=== PATIENT | female | born 1980 ===

== ENCOUNTER 2024-03-04 11:48 | Emergency (ER) | payer MEDICAID, SELFPAY ==
--- NOTE | ~2024-03-04 | US_ITS ---
EXAMINATION:US pelvic and transvaginal CLINICAL INFORMATION: Reason for Exam abdominal pain. ovariain torsions COMPARISON: No priors available. LMP: 02/12/2024 FINDINGS: UTERUS: The uterus is anteverted. Size: 13.1 x 7.2 x 6.8 cm. Uterine mass: Multiple uterine masses likely fibroids 5 of which were well identified and measured measuring up to 3.8 cm, 2.6 cm, 3.1 cm, 1.9 cm and 1.9 cm. Cervix: Grossly unremarkable. Endometrium: No ultrasound evidence of endometrial lesion. endometrial thickness measures 0.9 cm ADNEXA: Normal Right ovary: Normal in size. Left ovary: Not visualized might have been obscured by bowel gas Doppler exam: Normal Doppler flow in the right ovary. FREE FLUID: Trace amount of free fluid. OTHER FINDINGS: None US/US pelvic ovarian doppler IMPRESSION: 1. Multiple uterine masses likely fibroids the largest measure up to 3.8 cm. 2. Left ovary not visualized might have been obscured by bowel gas.
--- NOTE | ~2024-03-04 | US_ITS ---
EXAMINATION:US pelvic and transvaginal CLINICAL INFORMATION: Reason for Exam abdominal pain. ovariain torsions COMPARISON: No priors available. LMP: 02/12/2024 FINDINGS: UTERUS: The uterus is anteverted. Size: 13.1 x 7.2 x 6.8 cm. Uterine mass: Multiple uterine masses likely fibroids 5 of which were well identified and measured measuring up to 3.8 cm, 2.6 cm, 3.1 cm, 1.9 cm and 1.9 cm. Cervix: Grossly unremarkable. Endometrium: No ultrasound evidence of endometrial lesion. endometrial thickness measures 0.9 cm ADNEXA: Normal Right ovary: Normal in size. Left ovary: Not visualized might have been obscured by bowel gas Doppler exam: Normal Doppler flow in the right ovary. FREE FLUID: Trace amount of free fluid. OTHER FINDINGS: None US/US pelvic and transvaginal IMPRESSION: 1. Multiple uterine masses likely fibroids the largest measure up to 3.8 cm. 2. Left ovary not visualized might have been obscured by bowel gas.
[2024-03-04 12:18] VITALS: BP 176/107; PULSE 103; RESP 16; TEMP 36.9; O2SAT 98; BMI 33.0
--- NOTE | 2024-03-04 12:21 | ED.GENADULT ---
HPI - General Adult General Chief complaint: Vaginal Bleeding Stated complaint: Vag Discomfort Time Seen by Provider: 03/04/24 19:13 Source: patient Mode of arrival: ambulatory Limitations: no limitations History of Present Illness HPI narrative: Patient comes to the emergency room complaining of a near syncopal episode. Patient states that she was at work, felt lightheaded, did not pass out. Patient states that she has had this happened before. Patient states that yesterday she had an episode of heavy vaginal bleeding. Patient states that she does not know if she had rectal bleeding as well. She states that over last month, patient has been having intermittent vaginal bleeding and spotting. Patient states that today she has not had any vaginal bleeding or spotting at all. Related Data Allergies Allergy/AdvReac Type Severity Reaction Status Date / Time pollen Allergy Unknown Itchy Eyes Uncoded 03/04/24 12:24 Review of Systems Review of Systems: Constitutional : No Weight loss, No Fever, No Chills, No Night Sweats, complaining of fatigue ENT/Mouth : No Hearing loss, No Ear Pain, No Nasal Congestion, No Sinus Pain, No Hoarseness, No sore throat, No Rhinorrhea, No Swallowing Difficulty Eyes: No Eye Pain, No Swelling, No Redness, No Foreign Body, No Discharge, No Vision Changes Cardiovascular : No Chest Pain, No SOB, No Dyspnea on Exertion, No Orthopnea, No Edema, No Palpitations, complaining of near syncopal episode, blacking out but no loss of consciousness, Respiratory : No Cough, No Sputum, No Wheezing, No Smoke Exposure, No Dyspnea Gastrointestinal : No Nausea, No Vomiting, No Diarrhea, No Constipation, No abdominal Pain, No Hematochezia, No Melena Genitourinary : Complaining of irregular vaginal bleeding, No Dysuria, No Urinary Frequency, No Hematuria, No Urinary Incontinence, No Urgency, No Flank Pain, No Urinary Flow Changes, No Hesitancy Musculoskeletal : No joint pain, No Myalgias, No Joint Swelling Skin : No Skin Lesions, No rash Neuro : No Weakness, No Numbness, No Paresthesias, No Loss of Consciousness, No Dizziness, No Headache Psych : No Anxiety/Panic, No Depression, No SI/HI/AH/VH, No Social Issues, Heme/Lymph: No Bruising, No Bleeding,No Lymphadenopathy Endocrine : No Polyuria, No Polydipsia, No Temperature Intolerance PMFSH Social History Social History Advance Directives: No Do you have a plan to hurt others: No Plan Physical Exam ED Vital Signs: Vital Signs - 24 hr 03/04/24 12:18 03/04/24 19:25 03/04/24 21:27 Temperature 98.4 F 98.7 F Pulse Rate 103 H 90 83 Respiratory Rate 16 16 Blood Pressure 176/107 H 149/87 H 141/92 H Pulse Oximetry 98 99 Oxygen Delivery Method Room Air Room Air 03/04/24 21:29 03/04/24 21:29 03/04/24 22:39 Temperature 98.5 F Pulse Rate 87 90 85 Respiratory Rate 16 Blood Pressure 151/94 H 164/100 H 154/92 H Pulse Oximetry 100 Oxygen Delivery Method Room Air 03/04/24 22:55 Temperature 98.5 F Pulse Rate 85 Respiratory Rate 16 Blood Pressure 154/92 H Pulse Oximetry 100 Oxygen Delivery Method Room Air BMI result Body Mass Index 33.0 Const Other: Appearance: Alert. Oriented X3. No acute distress. Eyes: Pupils equal, round and reactive to light. ENT: Pharynx normal. Neck: Normal inspection. Neck supple. No lymph nodes noted. No crepitus CVS: Normal heart rate and rhythm. Pulses normal. Normal S1 and S2 Respiratory: No respiratory distress. Breath sounds normal. No Wheezing. No rales Abdomen: Soft and nontender. No rigidity. No distention. Digital rectal exam shows normal brown stool Skin: Skin warm and dry. Normal skin color. Normal skin turgor. Extremities: No lower extremity edema. No Lacerations. No Rash Neuro: Oriented X 3. No motor deficit. No sensory deficit. Moving all extremities. No slurred speech. CN 2 through 12 grossly intact Psych: calm, cooperative, normal affect Course Course Course Narrative: RME: Triage written by KAN Howell. 43-year-old female presents to the ED for lower abdominal cramping and heavy vaginal bleeding. Patient has been having irregular menses and dysuria. Patient still felt lightheaded and then had lower abdominal cramping for like she was about to pass out. Medical Decision Making Medical Decision Making [facility] Narrative: -my interpretation of EKG: Normal sinus rhythm, heart rate 83, no ST segment depression or elevation, no T-wave inversion, QTC 455 My interpretation of labs: Normal hematology, chemistry within normal limits, D-dimer negative, coagulation times normal, troponin negative, hCG negative, urinalysis negative for blood or UTI, guaiac test negative -ultrasound radiology report: Multiple uterine masses likely fibroids -I discussed the above-mentioned with the patient, patient will follow-up with her OBGYN. At this time, patient is unwilling to start taking any control pills or an IUD since patient would like to try to get . -at this time, patient denies any spotting or vaginal bleeding. -orthostatic vitals were negative Differential Diagnosis Differential Diagnoses: The differential diagnosis associated with the presentation includes (Near syncope, anemia, orthostatic hypotension, dehydration) Admission/Observation Consideration of admission/observation: Escalation of care including admission/observation considered (Given patient's symptoms, observation was considered) Lab Data MDM Lab Attestation statement: I reviewed the patient's lab results. 03/04/24 12:37 03/04/24 12:37 Labs: Lab Results 03/04/24 03/04/24 03/04/24 Range/Units 12:37 12:45 19:47 WBC 5.5 (4.8-10.8) X10*3/uL RBC 4.25 (4.20-5.50) X10*6/uL Hgb 12.6 (12.0-16.0) g/dl Hct 37.8 (37.0-47.0) % MCV 88.9 (80.0-98.0) fL MCH 29.6 (27.0-33.0) pg MCHC 33.3 (31.0-35.0) g/dl RDW 11.9 (11.0-16.0) % Plt Count 266 (160-400) X10*3/uL MPV 10.5 (9.4-12.3) fL Immature Gran % (Auto) 0.2 (0.0-0.4) % Neut % (Auto) 52.0 (45-73) % Lymph % (Auto) 31.7 (20-40) % [place] % (Auto) 15.2 H (2-11) % Eos % (Auto) 0.5 (0-4) % Baso % (Auto) 0.4 (0-2) % Lymph # (Auto) 1.7 (1.2-4.9) X10*3/uL [place] # (Auto) 0.8 (0.1-1.2) X10*3/uL Eos # (Auto) 0.0 (0.0-0.4) X10*3/uL Baso # (Auto) 0.0 (0.0-0.2) X10*3/uL Abs Immat Gran (auto) 0.01 (0.00-0.03) X10*3/uL Absolute Neuts (auto) 2.8 (2.0-8.3) x10*3/uL Absolute Nucleated RBC 0.000 (0.0-0.012) X10*3/uL Nucleated RBC % (auto) 0.0 (0.0-0.2) /100WBC PT 12.3 (11.1-13.3) SEC INR 1.0 (0.9-1.1) APTT 32.0 (26.0-36.8) SEC D-Dimer High Sensitivty < 150 NG/ML Sodium 139 (135-145) mmol/L Potassium 3.5 (3.3-5.1) mmol/L Chloride 105 (96-108) mmol/L Carbon Dioxide 26 (22-29) mmol/L Anion Gap 12 (12-20) BUN 10 (9-16) mg/dL Creatinine 0.90 (0.5-1.4) mg/dL Estim Creat Clear Calc 72.9 Estimated GFR > 60 Random Glucose 96 (60-115) mg/dL Calcium 9.3 (8.4-10.2) mg/dL Total Bilirubin 0.9 (0.0-1.0) mg/dL AST 23 (5-31) U/L ALT 22 (0-31) U/L Alkaline Phosphatase 90 (39-117) U/L Troponin I High Sens < 2.7 (<3.5-17.0) ng/L Total Protein 8.4 H (6.5-8.0) g/dL Albumin 3.8 (3.5-5.0) g/dL Beta HCG, Quant < 2 mIU/mL Urine Color Yellow Urine Appearance Clear Urine pH 6.0 (5.0-9.0) Ur Specific [place] 1.025 (1.005-1.025) Urine Protein Trace (Neg-Trace) mg/dL Urine Glucose (UA) Negative (Negative) mg/dL Urine Ketones Negative (Negative) mg/dL Urine Blood Negative (Negative) Urine Nitrite Negative (Negative) Ur Leukocyte Esterase Negative (Negative) Urine Test NEGATIVE (NEGATIVE) Stool Occult Blood NEGATIVE (NEGATIVE) Independent Interpretation I performed an independent interpretation of an: Ultrasound Radiology Impression Discussion of test interpretation with radiology: I have reviewed the radiologist's reading. Radiologist Impression: FINDINGS: UTERUS: The uterus is anteverted. Size: 13.1 x 7.2 x 6.8 cm. Uterine mass: Multiple uterine masses likely fibroids 5 of which were well identified and measured measuring up to 3.8 cm, 2.6 cm, 3.1 cm, 1.9 cm and 1.9 cm. Cervix: Grossly unremarkable. Endometrium: No ultrasound evidence of endometrial lesion. endometrial thickness measures 0.9 cm ADNEXA: Normal Right ovary: Normal in size. Left ovary: Not visualized might have been obscured by bowel gas Doppler exam: Normal Doppler flow in the right ovary. FREE FLUID: Trace amount of free fluid. OTHER FINDINGS: None US/US pelvic and transvaginal IMPRESSION: 1. Multiple uterine masses likely fibroids the largest measure up to 3.8 cm. 2. Left ovary not visualized might have been obscured by bowel gas. Critical Care Time Critical Care Time Critical Care Time: Yes Total Critical Care Time: 35 Attestation: I have personally provided critical care time. Time includes review of lab data, radiology results, discussion with consultants, and monitoring for potential decompensation. Intervention performed as documented. Discharge Plan Discharge Clinical Impression: Near syncope, Uterine fibroid Patient Disposition: Home, Self-Care Instructions: Near Syncope (ED) Additional Instructions: Please follow-up with your primary care physician tomorrow. If you have any worsening or new symptoms, please return to the emergency room or call 911 Stand Alone Forms: Work/School Release Interventions: ED Discharge Assessment Last Done: 03/04/24 22:55 Discharge Date/Time: 03/04/24 22:56 Print Language: Uzbek
[2024-03-04 12:43] LABS: MANUAL DIFF FLAG NO
[2024-03-04 12:45] LABS: Basophils Percent Auto 0.4 % (0-2); Eosinophils Percent Auto 0.5 % (0-4); Hematocrit 37.8 % (37.0-47.0); Hemoglobin 12.6 g/dl (12.0-16.0); Imm Gran Abs Auto 0.01 X10*3/uL (0.00-0.03); Imm Gran Pct Auto 0.2 % (0.0-0.4); Lymphocytes Absolute Auto 1.7 X10*3/uL (1.2-4.9); Lymphocytes Percent Auto 31.7 % (20-40); Mean Corpuscular HGB Conc 33.3 g/dl (31.0-35.0); Mean Corpuscular Hemoglobin 29.6 pg (27.0-33.0); Mean Corpuscular Volume 88.9 fL (80.0-98.0); Mean Platelet Volume 10.5 fL (9.4-12.3); Monocytes Absolute Auto 0.8 X10*3/uL (0.1-1.2); Monocytes Percent Auto 15.2 % (2-11); Neutrophils Absolute Auto 2.8 x10*3/uL (2.0-8.3); Platelet Count 266 X10*3/uL (160-400); Red Blood Count 4.25 X10*6/uL (4.20-5.50); Red Cell Distribution Width 11.9 % (11.0-16.0); White Blood Count 5.5 X10*3/uL (4.8-10.8)
[2024-03-04 12:49] LABS: Prothrombin Time 12.3 SEC (11.1-13.3)
[2024-03-04 12:55] LABS: Appearance Urine Clear; Color Urine Yellow; Glucose Urine UA Negative (Negative); Leukocyte Esterase Urine Negative (Negative); Nitrite Urine Negative (Negative); Specific Gravity - Urine 1.025 (1.005-1.025); Urine Blood Negative (Negative); Urine Ketones Negative (Negative); Urine Protein Trace mg/dL (Neg-Trace)
[2024-03-04 12:56] LABS: UPreg QC Valid YES; Urine Pregnancy NEGATIVE (NEGATIVE)
[2024-03-04 13:08] LABS: Alanine Aminotransferase 22 U/L (0-31); Albumin Level 3.8 g/dL (3.5-5.0); Alkaline Phosphatase 90 U/L (39-117); Anion Gap 12 (12-20); Aspartate Amino Transferase 23 U/L (5-31); Bilirubin Total 0.9 mg/dL (0.0-1.0); Blood Urea Nitrogen 10 mg/dL (9-16); Calcium 9.3 mg/dL (8.4-10.2); Carbon Dioxide 26 mmol/L (22-29); Chloride 105 mmol/L (96-108); Creatinine Clr Calc Pharmacy 72.9; Estimated Glomerular Filt Rate > 60; Glucose Random 96 mg/dL (60-115); Potassium 3.5 mmol/L (3.3-5.1); Sodium 139 mmol/L (135-145); Total Protein 8.4 g/dL (6.5-8.0)
[2024-03-04 13:11] LABS: HCG Quantitative < 2 mIU/mL
[2024-03-04 19:25] VITALS: BP 149/87; PULSE 90; RESP 16; TEMP 37.1; O2SAT 99
--- NOTE | 2024-03-04 19:27 | ECG_ITS ---
Test Reason : DIZZINESS Blood Pressure : / mmHG Vent. Rate : 083 BPM Atrial Rate : 083 BPM P-R Int : 150 ms QRS Dur : 090 ms QT Int : 388 ms P-R-T Axes : 053 -16 074 degrees QTc Int : 455 ms Normal sinus rhythm Minimal voltage criteria for LVH, may be normal variant ( Kyle product ) Septal infarct , age undetermined Abnormal ECG No previous ECGs available Referred By: Brie Plasencia Electronically Signed By:ROSALIND CRAFT MD
[2024-03-04 19:41] LABS: D Dimer High Sensitivity < 150 NG/ML
--- NOTE | 2024-03-04 19:54 | PC.NURSE ---
Occult stool specimen collected by Dr. Plasencia and sent to lab for analysis. Awaiting results. Troponin & D-Dimer labs added, results pending.
[2024-03-04 20:01] LABS: Troponin-I High Sensitivity < 2.7 ng/L (<3.5-17.0)
[2024-03-04 20:07] LABS: OBS Int Ctl Valid YES; OBS1 NEGATIVE (NEGATIVE)
[2024-03-04 21:27] VITALS: BP 141/92; PULSE 83
[2024-03-04 21:29] VITALS: BP 151/94; BP 164/100; PULSE 87; PULSE 90
[2024-03-04 22:39] VITALS: BP 154/92; PULSE 85; RESP 16; TEMP 36.9; O2SAT 100
[2024-03-04 22:55] VITALS: BP 154/92; PULSE 85; RESP 16; TEMP 36.9; O2SAT 100
== END 2024-03-04 22:56 | disposition home or self-care (01) ==
PROVIDERS: Physician Assistant; Emergency Provider Emergency Medicine; PCP Physician Assistant
DX: R55 Syncope and collapse (principal); D25.9 Leiomyoma of uterus, unspecified; R10.30 Lower abdominal pain, unspecified; N92.6 Irregular menstruation, unspecified
CPT/HCPCS: 36415; 76830; 76856; 80053; 81003; 81025; 82272; 84484; 84702; 85025; 85379; 85610; 85730; 93005; 93975; 99284

== ENCOUNTER → 2024-03-04 19:27 | Outpatient (BNV) | payer MEDICAID, SELFPAY | PROVIDERS: Emergency Provider Emergency Medicine; PCP Physician Assistant; Visit Provider Internal Medicine Cardiovascular Disease | DX: R94.31 Abnormal electrocardiogram [ECG] [EKG] (principal) | CPT/HCPCS: 93010 ==